=== PATIENT | female | born 1975 | race Caucasian/White ===

== ENCOUNTER 2023-11-05 09:49 | Day surgery (SDC) | payer BC ==
[2023-11-05] VITALS (10 sets, daily range): BP systolic 100–132; BP diastolic 61–95; PULSE 81–106; TEMP 97.6–98.1
[~2023-11-05] VITALS: Ht 160 cm; Wt 93.0 kg
[~2023-11-05 09:49] MED LIST: CLARITIN-D 10 M1 T24 PO; LR 1,000 ML IV SCH; MULTIPLE VITAMI1 CAP PO
[2023-11-05] MEDS ORDERED: Tranexamic Acid 1,000 MG/10 ML VIAL ONE (10:55)
[2023-11-05] MEDS ORDERED: Midazolam 2 MG/2 ML VIAL ONE (10:55)
[2023-11-05] MEDS ORDERED: Lidocaine PF 2% (20 MG/ML) 5 ML VIAL ONE (10:59)
[2023-11-05] MEDS ORDERED: dexAMETHasone 10 MG/ML VIAL ONE (11:00)
[2023-11-05] MEDS ORDERED: NS 10 ML IV ONE (11:00)
[2023-11-05] MEDS ORDERED: Glycopyrrolate 0.2 MG/ML 1 ML VIAL ONE (11:00)
[2023-11-05] MEDS ORDERED: BUPivacaine PF 0.5% w EPI (1:200,000) 10 ML VIAL SQ ONE (12:55)
[2023-11-05] MEDS ORDERED: Lidocaine 1% w EPI (1:100,000) 30 ML Multi-Dose VIAL IJ ONE (12:55)
[2023-11-05] MEDS ORDERED: EPINEPHrine 1 MG/1 ML Ampule IR ONE (12:59)
--- NOTE | 2023-11-05 13:26 | NUR ---
1025 Patient ambulatory to bay 8 with steady gait, breathing even and unlabored. Pt is alert and oriented, accompanied by her . Consents reviewed and signed by the patient. IV established. LR infusion via gravity at K[facility]. Call light in reach. Warm blanket provided. Knee high maureen hose placed on left leg. Right knee cleansed with chlorhexidine.
[2023-11-05] MEDS ORDERED: Morphine 4 MG/ML VIAL SQ ONE (13:40)
[2023-11-05] MEDS ORDERED: Ketorolac 30 MG/ML VIAL IM ONE (13:40)
[2023-11-05] MEDS ORDERED: Thrombin Human (Recombinant) 5,000 UNITS VIAL TP ONE (13:40)
[2023-11-05] MEDS ORDERED: NS 10 ML VIAL IJ ONE (13:40)
[2023-11-05] MEDS ORDERED: Ondansetron 4 MG/2 ML VIAL IV PRN ×2 (14:30→15:15)
[2023-11-05] MEDS ORDERED: hydrALAZINE 20 MG/ML 1 ML VIAL IV PRN (14:30)
[2023-11-05] MEDS ORDERED: droPERidol 2.5 MG/ML 2 ML VIAL IV PRN (14:30)
[2023-11-05] MEDS ORDERED: fentaNYL 50 MCG/ML 1 ML SYRINGE/VIAL [PACU/SDC ONLY] IV PRN (14:30)
[2023-11-05] MEDS ORDERED: HYDROmorphone 1 MG/1 ML SYRINGE [PACU/SDC ONLY] IV PRN (14:30)
[2023-11-05] MEDS ORDERED: Bisacodyl 5 MG TAB PO PRN (15:15)
[2023-11-05] MEDS ORDERED: Magnes Hydrox (MOM) 80 MG/ML 30 ML CUP PO PRN (15:15)
[2023-11-05] MEDS ORDERED: Naloxone 0.4 MG/ML VIAL IV PRN (15:15)
[2023-11-05] MEDS ORDERED: Ketorolac 15 MG/ML VIAL IV SCH ×2 (15:15→19:40)
[2023-11-05] MEDS ORDERED: NS 1,000 ML IV SCH (15:15)
[2023-11-05] MEDS ORDERED: Morphine 4 MG/ML VIAL IV PRN (15:15)
[2023-11-05] MEDS ORDERED: oxyCODONE 5 MG TAB PO PRN (15:15)
[2023-11-05] MEDS ORDERED: Mag/Al Hydrox/Simeth Susp 30 ML CUP PO PRN (15:15)
--- NOTE | 2023-11-05 18:09 | NUR ---
PATIENT UP TO FLOOR AT APPROXIMATELY 1600. POST OP VITALS RUNNING AND WNL. POST OP FLUIDS INFUSING INTO RIGHT WRIST. PATIENT DENIES ANY PAIN, REPORTS FEELING SOME SENSATION TO TOES. PATIENT TOLERATING PO. DIET ADVANCED. HEMOVAC DRAIN TO COMPRESSION, NO OUTPUT IN TUBING. BULKY DRESSING WITH JEROME WRAP APPLIED. ICE PACK TO KNEE. SCD'S APPLIED. NO FURTHER NEEDS. CALL LIGHT IN REACH.
[2023-11-05] MEDS ORDERED: ceFAZolin 2 G in Water For Injection,Sterile 20 ML IV SCH (19:00)
[2023-11-05] MEDS ORDERED: Ascorbic Acid 500 MG TAB PO SCH (21:00)
[2023-11-05] MEDS ORDERED: Sennosides/Docusate 8.6-50 MG TAB PO SCH (21:00)
[2023-11-06 00:10] VITALS: BP 119/77; PULSE 93; TEMP 98
[2023-11-06 04:27] VITALS: BP 128/79; PULSE 89; TEMP 98.3
[2023-11-06 08:00] VITALS: BP 129/64; PULSE 84; TEMP 97.9
--- NOTE | 2023-11-06 08:11 | NUR ---
PATIENT ALERT AND ORIENTED X4. VSS. PATIENT HERE FOR RIGHT PARTIAL KNEE. DR MACHADO PULLED HEMAVAC DRAIN THIS AM. PATIENT REPORTS PAIN 3/10. IV TO RIGHT WRIST, INT AND FLUSHES WELL. PATIENT RESTING IN BED, WAITING ON BREAKFAST. CALL LIGHT IN REACH. NO FURTHER NEEDS.
[2023-11-06] MEDS ORDERED: Cephalexin 500 MG CAP PO SCH ×2 (09:00→17:00)
[2023-11-06] MEDS ORDERED: Magnes Hydrox (MOM) 80 MG/ML 30 ML CUP PO SCH (09:00)
[2023-11-06] MEDS ORDERED: Rivaroxaban 10 MG TAB PO SCH (09:00)
[2023-11-06] MEDS ORDERED: ULTRAM 50MG TAB50 MG PO (09:24)
[2023-11-06] MEDS ORDERED: CEPHALEXIN500 M1 PO (09:24)
[2023-11-06] MEDS ORDERED: ASPIRIN 81M81 MG/TA2 PO (09:24)
[2023-11-06] MEDS ORDERED: ZOHYDRO ER10 MG PO (09:25)
--- NOTE | 2023-11-06 11:22 | NUR ---
DISCHARGE INSTRUCTIONS PROVIDED. PATIENT EDUCATION GIVEN. DRESSING APPLIED TO RIGHT KNEE PER ORDER. FOLLOW UP APPOINTMENT DISCUSSED. MEDICATIONS REVIEWED. PATIENT INSTRUCTED ON SCHEDULING A FOLLOW UP FOR ORTHO. PATIENT LIVES OUT OF STATE AND WILL SCHEDULE APPT JUST HER AND DR. MACHADO DISCUSSED. PATIENT DENIES ANY QUESTIONS OR CONCERNS.
--- NOTE | 2023-11-06 14:12 | NUR ---
PATIENT ESCORTED OUT VIA WHEELCHAIR AND BELONGINGS.
--- NOTE | 2023-11-06 15:13 | NUR ---
dyehouse worker met with patient to discuss discharge planning. Patient lives in [place], [place] with her Bryce, Sean# [phone]. PCP is Milan Castorena, [facility] No issues affording medications. No DPOA-HC and not interested in completing one at this time. DME is [employer] [facility] but was not using until recently. Patient is independent with [employer] and was able to transport herself to and from appointments but reports her children will be transporting her to appointments. Patient reports she has outpatient PT scheduled with [facility] tomorrow. Patient would like to go home at time of discharge. Discharge plan: Home with OP PT
[2023-11-11] MEDS ORDERED: Celecoxib 200 MG CAP PO SCH (09:00)
== END 2023-11-06 14:25 | disposition home or self-care (01) ==
LOC: SDCO 09:49 → SURG 16:06 → SDCO 11-06 14:25
DX: M17.11 Unilateral primary osteoarthritis, right knee (principal); M23.300 Other meniscus derangements, unspecified lateral meniscus, right knee; G89.18 Other acute postprocedural pain
CPT/HCPCS: OP; A6197; A9284; C1713; C1776; J0171; J0665; J0690; J1100; J1580; J1885; J2250; J2270; J2704; J2795; J7120